=== PATIENT | female | born 1985 | race Two or more races ===

== ENCOUNTER → 2021-02-23 | Day surgery (SDC) | payer OTHER ==
[~2021-02-23] MED LIST: CALTRATE 600+D1 EAC1 PO; SYNTHROID125 MCG PO
== END | disposition home or self-care (01) ==
LOC: ADM 02-16 07:45 → CIR.AMB 06:24
PROVIDERS: ATTEND Orthopaedic Surgery Hand Surgery
DX: S63.392A Traumatic rupture of other ligament of left wrist, initial encounter (principal); Z20.822 Contact with and (suspected) exposure to COVID-19